=== PATIENT | male | born 1960 | race Caucasian/White ===

== ENCOUNTER 2017-12-12 20:01 | Emergency (ER) | payer OTHER ==
[2017-12-12 20:25] VITALS: BP 118/75
[2017-12-12] MEDS ORDERED: Ibuprofen TAB* 600 MG PO ONE (21:02)
--- NOTE | 2017-12-12 21:03 | UC ---
Respiratory Complaint HPI - HPI Summary HPI Summary: Awoke with right chest pain 2 days ago---no trauma---tender to palpation and SOB - History of Current Complaint Chief Complaint: UCGeneralIllness Stated Complaint: RIB INJURY Time Seen by Provider: 12/12/17 20:17 Hx Obtained From: Patient Onset/Duration: Sudden Onset, Lasting Days - 2, Still Present Timing: Constant Pain Intensity: 10 Pain Scale Used: 0-10 Numeric Aggravating Factors: Nothing Alleviating Factors: Nothing Associated Signs And Symptoms: Positive: Dyspnea, Pleuritic Chest Pain. Negative: Calf Pain, Calf Swelling, URI, Nasal Congestion - Allergies/Home Medications Allergies/Adverse Reactions: Allergies Allergy/AdvReac Type Severity Reaction Status Date / Time No Known Allergies Allergy Verified 12/12/17 20:25 PMH/Surg Hx/FS Hx/Imm Hx Previously Healthy: No Cardiovascular History: Cardiac Disease, Hypertension, Pacemaker/ICD GI/ History: Gastroesophageal Reflux - Surgical History Surgical History: Yes Surgery Procedure, Year, and Place: CATARACT SURGERY. HEART CATH AT [facility] – [place] NO IMPLANTS - Family History Known Family History: Positive: None - Social History Occupation: Employed Full-time Lives: With Family Alcohol Use: Occasionally Alcohol Amount: with dinner sometimes Substance Use Type: None Smoking Status (MU): Light Every Day Tobacco Smoker Amount Used/How Often: 5 cigarettes per day Review of Systems Constitutional: Negative Skin: Negative Eyes: Negative ENT: Negative Respiratory: Shortness Of Breath Cardiovascular: Negative Gastrointestinal: Negative Genitourinary: Negative Motor: Negative Neurovascular: Negative Musculoskeletal: Negative Neurological: Negative Psychological: Negative Is Patient Immunocompromised?: No All Other Systems Reviewed And Are Negative: Yes Physical Exam Triage Information Reviewed: Yes Appearance: Well-Appearing, Well-Nourished, Pain Distress Vital Signs: Initial Vital Signs Temp 98.7 F 12/12/17 20:16 Pulse 60 12/12/17 20:16 Resp 18 12/12/17 20:16 BP 118/75 12/12/17 20:16 Pulse Ox 96 12/12/17 20:16 Vital Signs Reviewed: Yes Eye Exam: Normal Eyes: Positive: Conjunctiva Clear ENT Exam: Normal ENT: Positive: Normal ENT inspection, Hearing grossly normal. Negative: Trismus , Muffled voice, Hoarse voice, Dental tenderness, Sinus tenderness Dental Exam: Normal Neck exam: Normal Neck: Positive: Supple, Nontender, No Lymphadenopathy Respiratory Exam: Normal Respiratory: Positive: Lungs clear, No respiratory distress, No accessory muscle use, Other: - Sat 96% on Room air. Negative: Chest non-tender Cardiovascular Exam: Normal Cardiovascular: Positive: RRR, No Murmur, Pulses Normal, Brisk Capillary Refill Musculoskeletal Exam: Normal Musculoskeletal: Positive: Strength Intact, ROM Intact, No Edema Neurological Exam: Normal Neurological: Positive: Alert, Muscle Tone Normal Psychological Exam: Normal Skin Exam: Normal UC Diagnostic Evaluation - Laboratory O2 Sat by Pulse Oximetry: 96 Respiratory Course/Dx - Course Course Of Treatment: reviewed Xray with MD-no evidence of FX---will d/c to go to ED for LAb studies --- - Differential Dx/Diagnosis Provider Diagnoses: Shortness of Breath Discharge - Sign-Out/Discharge Documenting (check all that apply): Patient Departure All imaging exams completed and their final reports reviewed: No - Discharge Plan Condition: Fair Disposition: HOME-RECOMMEND TO ED Patient Education Materials: Dyspnea (ED), Shortness of Breath (ED) Referrals: Latia Salas MD [Primary Care Provider] - Additional Instructions: Please go directly to the emergency department at [facility] for evaluation of your shortness of breath and chest wall pain - Billing Disposition and Condition Condition: FAIR Disposition: Home-Recommend to ED
--- NOTE | 2017-12-13 07:35 | RAD ---
INDICATION: Right-sided chest pain COMPARISON: March 28, 2014 TECHNIQUE: PA and lateral dual-energy views were obtained. FINDINGS: Bones/Soft Tissues: There are no acute bony findings. There are old, healed right-sided rib fractures Cardiomediastinal: The cardiomediastinal silhouette is normal. There is left-sided cardiac pacemaker placed in the interval Lungs: There are no infiltrates. There is no pneumothorax. Pleura: There are no pleural effusions. Other: None IMPRESSION: LEFT-SIDED CARDIAC PACEMAKER. NO ACTIVE DISEASE
--- NOTE | 2017-12-13 08:25 | UC ---
- Progress Note Progress Note: NO ACTIVE DISEASE SEEN ON CHEST X-RAY PER OFFICIAL RADIOLOGY REPORT. PATIENT WAS DISCHARGED TO THE ED YESTERDAY BUT LEFT WITHOUT BEING SEEN. PLEASE CALL PATIENT TO SEE HOW HE IS DOING. ADVISE HIM TO RETURN TO THE ED WITHOUT FAIL IF HIS SYMPTOMS PERSIST OR WORSEN. - TAMANNA CARABALLO M.D. Discharge - Sign-Out/Discharge Documenting (check all that apply): Post-Discharge Follow Up All imaging exams completed and their final reports reviewed: Yes - Discharge Plan Condition: Fair Disposition: HOME-RECOMMEND TO ED Patient Education Materials: Dyspnea (ED), Shortness of Breath (ED) Referrals: Latia Salas MD [Primary Care Provider] - Additional Instructions: Please go directly to the emergency department at [facility] for evaluation of your shortness of breath and chest wall pain - Billing Disposition and Condition Condition: FAIR Disposition: Home-Recommend to ED
== END 2017-12-12 21:15 | disposition home health service (06) ==
LOC: UCEAST 20:01
DX: R06.02 Shortness of breath (principal); R07.9 Chest pain, unspecified; I10 Essential (primary) hypertension; F17.210 Nicotine dependence, cigarettes, uncomplicated
CPT/HCPCS: 71046; 99212; A9270-GY; G0463

== ENCOUNTER 2017-12-12 21:33 | Emergency (ER) | payer OTHER ==
[2017-12-12 23:51] VITALS: BP 127/80
== END 2017-12-13 | disposition left against medical advice (07) ==
LOC: ED 21:33
DX: R06.02 Shortness of breath (principal); Z53.21 Procedure and treatment not carried out due to patient leaving prior to being seen by health care provider
CPT/HCPCS: 93005

== ENCOUNTER 2018-07-31 09:11 | Emergency (ER) | payer OTHER ==
--- NOTE | 2018-07-31 10:07 | UC ---
Skin Complaint HPI - HPI Summary HPI Summary: 58 yo male presents with LEFT hand redness, pain, and swelling. He tells me that 2 days ago he had a toothpick in his mouth and when he went to take it out , he accidentally stabbed himself in his left hand. Since that time area has been getting red, swollen, and more painful. He has not been taking anything OTC for his discomfort or applying creams/ice to the area. Denies numbness or tingling in his hand/fingers - History of Current Complaint Chief Complaint: UCSkin Stated Complaint: RED AREA ON HAND Hx Obtained From: Patient Onset/Duration: Gradual Onset Onset Severity: Moderate Current Severity: Severe Pain Intensity: 9 Pain Scale Used: 0-10 Numeric - Allergy/Home Medications Allergies/Adverse Reactions: Allergies Allergy/AdvReac Type Severity Reaction Status Date / Time No Known Allergies Allergy Verified 07/31/18 09:25 PMH/Surg Hx/FS Hx/Imm Hx Cardiovascular History: Hypertension GI/ History: Gastroesophageal Reflux Psychological History: Anxiety - Surgical History Surgical History: Yes Surgery Procedure, Year, and Place: CATARACT SURGERY. HEART CATH AT [facility] – [place] NO IMPLANTS - Family History Known Family History: Positive: None - Social History Occupation: Employed Full-time Lives: With Family Alcohol Use: Occasionally Alcohol Amount: with dinner sometimes Substance Use Type: None Smoking Status (MU): Light Every Day Tobacco Smoker Type: Cigarettes Amount Used/How Often: 5 cigarettes per day Household Exposure Type: Cigarettes Review of Systems All Other Systems Reviewed And Are Negative: Yes Constitutional: Positive: Negative Skin: Positive: Other - Red and swollen left hand Respiratory: Positive: Negative Cardiovascular: Positive: Negative Neurovascular: Positive: Negative Musculoskeletal: Positive: Negative Neurological: Positive: Negative Psychological: Positive: Negative Physical Exam - Summary Physical Exam Summary: GENERAL: NAD. WDWN. No pain distress. SKIN: LEFT HAND: The skin between the left 1st and 2nd digit with a 1mm scab/ puncture wound. Surround erythema, edema, and warmth extending 3.0cm around the area. TTP. FROM at left wrist and all fingers. No streaking, bleeding, or drainage. NECK: Supple. Nontender. No lymphadenopathy. CHEST: No accessory muscle use. Breathing comfortably and in no distress. CV: Pulses intact. Cap refill <2seconds NEURO: Alert. PSYCH: Age appropriate behavior. Triage Information Reviewed: Yes Vital Signs: Initial Vital Signs Temp 97.7 F 07/31/18 09:19 Pulse 74 07/31/18 09:19 Resp 16 07/31/18 09:19 BP 81/53 07/31/18 09:19 Pulse Ox 99 07/31/18 09:19 Vital Signs Reviewed: Yes Course/Dx - Course Course Of Treatment: Cellulitis of left hand d/t puncture wound. Rx for keflex. He is asking for pain medication today due to his hand pain - has taken norco in the past with good relief...will rx for a short supply for this today. iSTOP: Reference #: [id number] - Diagnoses Provider Diagnosis: Cellulitis of left hand Discharge - Sign-Out/Discharge Documenting (check all that apply): Patient Departure All imaging exams completed and their final reports reviewed: No Studies - Discharge Plan Condition: Stable Disposition: HOME Prescriptions: Cephalexin CAP* [Keflex CAP*] 500 mg PO TID #21 cap HYDROcodone/ACETAMIN 5-325 MG* [[place] 5-325 TAB*] 1 tab PO BID PRN #6 tab MDD 2 PRN Reason: Pain Patient Education Materials: Cellulitis (ED) Referrals: Latia Salas MD [Primary Care Provider] - Additional Instructions: If you develop a fever, shortness of breath, chest pain, new or worsening symptoms - please call your PCP or go to the ED. Apply ice to the area. If the redness spreads, you develop a fever, or the pain worsens please be rechecked - Billing Disposition and Condition Condition: STABLE Disposition: Home
[2018-07-31 10:14] VITALS: BP 84/51
== END 2018-07-31 10:36 | disposition home or self-care (01) ==
LOC: UCEAST 09:11
DX: L03.114 Cellulitis of left upper limb (principal); I10 Essential (primary) hypertension; K21.9 Gastro-esophageal reflux disease without esophagitis; F41.9 Anxiety disorder, unspecified; F17.210 Nicotine dependence, cigarettes, uncomplicated
CPT/HCPCS: 99212; G0463

== ENCOUNTER 2018-09-12 14:36 | Emergency (ER) | payer OTHER ==
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
[2018-09-12] MEDS ORDERED: Albuterol/Ipratropium NEB.SOL* Albuterol 2.5 MG/Ipratropium 0.5 MG 3 ML INH ONE (16:35)
[2018-09-12] MEDS ORDERED: predniSONE TAB* 20 MG PO ONE (16:35)
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
[2018-09-12 17:34] VITALS: BP 142/78
== END 2018-09-12 17:05 | disposition home or self-care (01) ==
LOC: ED 14:36
DX: J70.5 Respiratory conditions due to smoke inhalation (principal); J44.1 Chronic obstructive pulmonary disease with (acute) exacerbation; F17.210 Nicotine dependence, cigarettes, uncomplicated; I25.10 Atherosclerotic heart disease of native coronary artery without angina pectoris; I10 Essential (primary) hypertension; Z95.0 Presence of cardiac pacemaker
CPT/HCPCS: 71046; 99282; A9270-GY; J7512